=== PATIENT | female | born 1955 | race Asian ===

== ENCOUNTER → 2017-01-25 | Outpatient (CLI) | payer OTHER | END | disposition home or self-care (01) | LOC: MA 13:09 | DX: N63 Unspecified lump in breast (principal) ==

== ENCOUNTER → 2017-06-18 | Outpatient (CLI) | payer OTHER | END | disposition home or self-care (01) | LOC: MA 06-17 13:00 → US 06-17 14:00 → MA 09:39 | PROC: BG44ZZZ Ultrasonography of Thyroid Gland (ICD-10-PCS; principal; 2017-06-18) | PROC: BH42ZZZ Ultrasonography of Bilateral Breasts (ICD-10-PCS; 2017-06-18) | DX: N63.0 Unspecified lump in unspecified breast (principal) | CPT/HCPCS: 76641; G0204 ==